=== PATIENT | female | born 1980 | race Caucasian/White ===

== ENCOUNTER → 2021-05-05 12:22 | Outpatient (CLI) | payer OTHER, MEDICAID, SELFPAY ==
[2021-05-05 13:27] LABS: COVID19 -Nasal RAPID Negative (Negative)
== END ==
PROVIDERS: PCP Family Medicine; Referring Provider Student in an Organized Health Care Education/Training Program; Visit Provider Student in an Organized Health Care Education/Training Program
DX: Z20.822 Contact with and (suspected) exposure to COVID-19 (principal); R51.9 Headache, unspecified
CPT/HCPCS: 87635

== ENCOUNTER 2022-02-08 13:26 | Emergency (ER) | payer OTHER, MEDICAID, SELFPAY ==
[2022-02-08 13:32] VITALS: BP 180/101; PULSE 79; RESP 16; TEMP 36.6; O2SAT 99
--- NOTE | 2022-02-08 13:54 | DI.RAD.S_ITS ---
PROCEDURE: XR CHEST 1V INDICATIONS: chest pain TECHNIQUE: One view of the chest was acquired. COMPARISON: None. FINDINGS: Surgical changes and devices: None. Lungs and pleura: Mild patchy opacity medial right lung base. No pleural effusions or pneumothorax. Mediastinum: Mediastinal contours appear normal. Heart size is normal. Bones and chest wall: No suspicious bony lesions. Overlying soft tissues appear unremarkable. IMPRESSION: Mild right basilar opacity is nonspecific, could represent pneumonia or aspiration or atelectasis in the appropriate clinical setting. Dictated by: Aebbe Puga M.D. on 02/08/2022 at 14:56 Approved by: Abebe Puga M.D. on 02/08/2022 at 14:59
[2022-02-08 14:24] LABS: Add Manual Diff / Slide Review NO; Basophils Absolute Auto 0 /uL (0-100); Basophils Percent Auto 0.8 % (0-2); Eosinophils Absolute Auto 300 /uL (0-450); Eosinophils Percent Auto 4.9 % (2-4); Hematocrit 39.1 % (36-46); Hemoglobin 13.2 g/dL (12.0-16.0); Lymphocytes Absolute Auto 1700 /uL (1100-4500); Lymphocytes Percent Auto 31.6 % (25-40); Mean Corpuscular HGB Conc 33.7 % (30-36); Mean Corpuscular Hemoglobin 29.4 PG (26-34); Mean Corpuscular Volume 87.3 fL (80-100); Monocytes Absolute Auto 400 /uL (0-900); Monocytes Percent Auto 7.4 % (3-14); Neutrophils Absolute Auto 3000 /uL (1500-7000); Neutrophils Percent Auto 55.3 % (50-75); Platelet Count 265 X10^3/uL (150-400); Red Blood Cell Count 4.47 X10^6/uL (4.0-5.2); Red Cell Distribution Width 14.4 % (11.6-14.8); White Blood Cell Count 5.4 X10^3/uL (4.5-11.0)
[2022-02-08 14:35] LABS: Alanine Aminotransferase 13 IU/L (<35); Albumin 4.3 g/dL (3.5-5.0); Albumin Globulin Ratio 1.3 (1.0-2.8); Alkaline Phosphatase 49 U/L (38-126); Aspartate Aminotransferase 23 IU/L (14-36); BUN Creatinine Ratio 14.3 (6-22); Bilirubin Total 0.9 mg/dL (0.2-1.3); Blood Urea Nitrogen 9 mg/dL (7-17); Calcium 9.4 mg/dL (8.4-10.2); Carbon Dioxide 27 mmol/L (22-32); Chloride 102 mmol/L (98-107); Creatine Kinase 44 U/L (30-135); Estimated Glomerular Filt Rate > 60 mL/min (>60); Globulin 3.4 g/dL (1.7-4.1); Glucose 88 mg/dL (70-100); HEMOLYSIS < 15 (0-50); Lipase 88 U/L (23-300); Magnesium 1.9 mg/dL (1.6-2.3); Sodium 137 mmol/L (137-145); Total Protein 7.7 g/dL (6.3-8.2)
[2022-02-08 14:46] LABS: Troponin I < 0.012 ng/mL (0.01-0.034)
[2022-02-08 16:13] VITALS: BP 179/96; PULSE 76; RESP 18; O2SAT 98
[2022-02-08] MEDS: AZITHROMYCIN 250 MG TABLET 500 MG PO (17:49)
[2022-02-08] MEDS: AMOXICILLIN 250 MG CAPSULE 1000 MG PO (17:49)
[2022-02-08 17:50] VITALS: BP 160/97; PULSE 72
[2022-02-08] MEDS: lisinopriL 5 MG TABLET PO (17:50)
[2022-02-08 17:54] LABS: Troponin I < 0.012 ng/mL (0.01-0.034)
--- NOTE | 2022-02-08 17:59 | ED.CHESTPAIN ---
HPI - Chest Pain <XAVIER Yang - Last Filed: 02/08/22 19:42> General Chief Complaint: Chest Pain Stated Complaint: high bp chest pain rapid heartbeat Time Seen by Provider: 02/08/22 16:32 Source: patient Mode of arrival: Ambulatory History of Present Illness HPI narrative: This is a 41-year-old female who presents to the emergency department complaining of high blood pressure for the last week, endorses having an upper respiratory infection and comes in today with sensation of chest burning which has been present for most of the day, states it went away for a short time while she was waiting in the waiting room and came back when she came back to a room. She denies any anxiety, is not on any antidepressants, states that she had a cold a week ago and has had high blood pressure with systolic blood pressures over 150 for the last 1-2 weeks. She brought in a record of her blood pressures, she has a follow-up appointment with Dr. De La Garza on March 02. 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 She endorses having a stressful lifestyle but denies any increased stress, fatigue, fever, chills, sensation of shortness of breath or other. She denies having a productive cough or increased congestion. Related Data Previous Rx's Medication Instructions Recorded amoxicillin 500 mg capsule 1,000 mg PO TID pneumonia 7 days 02/08/22 #42 caps azithromycin 250 mg tablet 250 mg PO DAILY 4 days #4 tabs 02/08/22 hydroxyzine HCl 25 mg tablet 25 mg PO BID PRN anxiety/chest 02/08/22 discomfort #14 tabs lisinopril 5 mg tablet 5 mg PO DAILY 30 days #30 tabs 02/08/22 Allergies Allergy/AdvReac Type Severity Reaction Status Date / Time No Known Drug Allergies Allergy Verified 10/23/18 15:53 Review of Systems <XAVIER Yang - Last Filed: 02/08/22 19:42> Review of Systems Narrative: Review of systems is negative for acute abnormalities unless otherwise noted in HPI Patient History <XAVIER Yang - Last Filed: 02/08/22 19:42> Surgical History History of bilateral tubal ligation (04/10/09) Social History Smoking Status: Never smoker Smoking Status: Never smoker Exam <XAVIER Yang - Last Filed: 02/08/22 19:42> Narrative Exam Narrative: Reviewed vitals signs and nursing notes. General: cooperative, comfortable, in no acute distress, well groomed HEENT: symmetrical facial expressions, moist mucous membranes, EOMI, PERRLA Cardiovascular: regular rate and rhythm, no peripheral edema, warm extremities, patient is hypertensive, no murmur auscultated, no additional sounds, S1-S2, blood pressure is between 150 and 170 systolic for most readings. Respiratory: normal effort, able to speak in complete sentences, without wheezing, stridor, or abnormal breath sounds. No retractions or tachypnea. Diminished breath sounds to right middle lobe, without crackles, rhonchi or wheezing, GI: abdomen soft, nontender to palpation, nondistended, without masses, rebound tenderness or exquisite tenderness with exam. MSK: moves all extremities, neurovascularly intact, no weakness, normal tone Skin: brisk capillary refill, without pallor or erythema Neuro: normal speech and cognition, A&O x3, ambulatory, clear speech, no focal neuro deficits on exam Psych: mental status is grossly normal, congruent mood, normal affect, pleasant and cooperative Initial Vital Signs Initial Vital Signs: Vital Signs Temperature 97.8 F 02/08/22 13:32 Pulse Rate 79 02/08/22 13:32 Respiratory Rate 16 02/08/22 13:32 Blood Pressure 180/101 H 02/08/22 13:32 Pulse Oximetry 99 02/08/22 13:32 Oxygen Delivery Method 02/08/22 13:32 <Tiera Ryan DO - Last Filed: 02/10/22 08:55> Initial Vital Signs Initial Vital Signs: Vital Signs Temperature 97.8 F 02/08/22 13:32 Pulse Rate 79 02/08/22 13:32 Respiratory Rate 16 02/08/22 13:32 Blood Pressure 180/101 H 02/08/22 13:32 Pulse Oximetry 99 02/08/22 13:32 Oxygen Delivery Method 02/08/22 13:32 Course <XAVIER Yang - Last Filed: 02/08/22 19:42> Orders Ordered: Discontinued Medications Amoxicillin (Amoxicillin 250 Mg Capsule) 1,000 mg PO NOW ONE Stop: 02/08/22 17:45 Last Admin: 02/08/22 17:49 Dose: 1,000 mg Documented By: HEATHER Azithromycin (Azithromycin 250 Mg Tablet) 500 mg PO NOW ONE Stop: 02/08/22 17:45 Last Admin: 02/08/22 17:49 Dose: 500 mg Documented By: HEATHER Lisinopril (Lisinopril 5 Mg Tablet) 5 mg PO NOW ONE Stop: 02/08/22 17:37 Last Admin: 02/08/22 17:50 Dose: 5 mg Documented By: HEATHER Vital Signs Vital signs: Vital Signs - 8 hr 02/08/22 13:32 02/08/22 16:13 02/08/22 17:50 Temperature 97.8 F Pulse Rate 79 76 72 Respiratory Rate 16 18 Blood Pressure 180/101 H 179/96 H 160/97 H Pulse Oximetry 99 98 Oxygen Delivery Method Room Air Room Air 02/08/22 18:29 Temperature Pulse Rate 100 H Respiratory Rate 24 Blood Pressure 164/99 H Pulse Oximetry 100 Oxygen Delivery Method Room Air <Tiera Ryan DO - Last Filed: 02/10/22 08:55> Orders Ordered: Discontinued Medications Amoxicillin (Amoxicillin 250 Mg Capsule) 1,000 mg PO NOW ONE Stop: 02/08/22 17:45 Last Admin: 02/08/22 17:49 Dose: 1,000 mg Documented By: HEATHER Azithromycin (Azithromycin 250 Mg Tablet) 500 mg PO NOW ONE Stop: 02/08/22 17:45 Last Admin: 02/08/22 17:49 Dose: 500 mg Documented By: HEATHER Lisinopril (Lisinopril 5 Mg Tablet) 5 mg PO NOW ONE Stop: 02/08/22 17:37 Last Admin: 02/08/22 17:50 Dose: 5 mg Documented By: HEATHER Vital Signs Vital signs: Vital Signs - 8 hr 02/08/22 13:32 02/08/22 16:13 02/08/22 17:50 Temperature 97.8 F Pulse Rate 79 76 72 Respiratory Rate 16 18 Blood Pressure 180/101 H 179/96 H 160/97 H Pulse Oximetry 99 98 Oxygen Delivery Method Room Air Room Air 02/08/22 18:29 Temperature Pulse Rate 100 H Respiratory Rate 24 Blood Pressure 164/99 H Pulse Oximetry 100 Oxygen Delivery Method Room Air MDM - Chest Pain <Ivette Zaidi [facility] - Last Filed: 02/08/22 19:42> Lab Data Result diagrams: 02/08/22 13:40 02/08/22 13:54 Labs: Lab Results 02/08/22 02/08/22 02/08/22 Range/Units 13:40 13:54 16:46 WBC 5.4 (4.5-11.0) X10^3/uL RBC 4.47 (4.0-5.2) X10^6/uL Hgb 13.2 (12.0-16.0) g/dL Hct 39.1 (36-46) % MCV 87.3 (80-100) fL MCH 29.4 (26-34) PG MCHC 33.7 (30-36) % RDW 14.4 (11.6-14.8) % Plt Count 265 (150-400) X10^3/uL Neut % (Auto) 55.3 (50-75) % Lymph % (Auto) 31.6 (25-40) % Cooper % (Auto) 7.4 (3-14) % Eos % (Auto) 4.9 H (2-4) % Baso % (Auto) 0.8 (0-2) % Neut # (Auto) 3000 (3686-6502) /uL Lymph # (Auto) 1700 (6741-7164) /uL Cooper # (Auto) 400 (0-900) /uL Eos # (Auto) 300 (0-450) /uL Baso # (Auto) 0 (0-100) /uL Sodium 137 (137-145) mmol/L Potassium 4.0 (3.4-5.1) mmol/L Chloride 102 (98-107) mmol/L Carbon Dioxide 27 (22-32) mmol/L BUN 9 (7-17) mg/dL Creatinine 0.63 (0.52-1.04) mg/dL Estimated GFR > 60 (>60) mL/min BUN/Creatinine Ratio 14.3 (6-22) Glucose 88 (70-100) mg/dL Calcium 9.4 (8.4-10.2) mg/dL Magnesium 1.9 (1.6-2.3) mg/dL Total Bilirubin 0.9 (0.2-1.3) mg/dL AST 23 (14-36) IU/L ALT 13 (<35) IU/L Alkaline Phosphatase 49 (38-126) U/L Total Creatine Kinase 44 (30-135) U/L CK-MB (CK-2) TNP CK-MB (CK-2) Rel Index TNP Troponin I < 0.012 < 0.012 (0.01-0.034) ng/mL Total Protein 7.7 (6.3-8.2) g/dL Albumin 4.3 (3.5-5.0) g/dL Globulin 3.4 (1.7-4.1) g/dL Albumin/Globulin Ratio 1.3 (1.0-2.8) Lipase 88 (23-300) U/L Imaging Data Chest x-ray: Radiologist's Impression: PROCEDURE:? XR CHEST 1V ? INDICATIONS:? chest pain ? TECHNIQUE:? One view of the chest was acquired.? ? COMPARISON:? None. ? FINDINGS:? ? Surgical changes and devices:? None.? ? Lungs and pleura:? Mild patchy opacity medial right lung base.? No pleural effusions or pneumothorax.? ? Mediastinum:? Mediastinal contours appear normal.? Heart size is normal.? ? Bones and chest wall:? No suspicious bony lesions.? Overlying soft tissues appear unremarkable.? ? IMPRESSION:? Mild right basilar opacity is nonspecific, could represent pneumonia or aspiration or atelectasis in the appropriate clinical setting.? ? Dictated by: Abebe Puga M.D. on 02/08/2022 at 14:56 ? ? Approved by: Abebe Puga M.D. on 02/08/2022 at 14:59 ? ECG Data Interpretation: EKG independently reviewed by myself at 1345 reveals normal sinus rhythm at 74 bpm with regular axis and intervals. No STEMI, ST segment changes, arrhythmia, or acute ischemic changes. Repeat EKG independently reviewed by myself at 1700 reveals normal sinus rhythm at 77 bpm with regular axis and intervals. No STEMI, ST segment changes, arrhythmia, or acute ischemic changes. [facility] Narrative Medical decision making narrative: This is a pleasant 41-year-old female without significant medical history who presents to the emergency department complaining of chest burning since last night and this morning, and complains of high blood pressure over the last week with systolic blood pressures in the 150s. Patient presents with a list of the last blood pressure she is been monitoring at home for the last week and a half. Most all of them have a systolic blood pressure of 1 50-170, there was 1 blood pressure of 120 systolic and no hypotension was notable. She denies any associated symptoms with her chest pain and burning sensation, she describes it being midline, denies a productive cough, states that she had an upper respiratory infection last week but that has gotten slightly better. She denies being congested or having a runny nose. Chest x-ray today shows a mild patchy opacity in her right lower lobe base, no pleural effusion or pneumothorax. She has been hypertensive during her visit today with systolic blood pressures up to 180s. On exam, her heart sounds are regular, S1-S2 without additional sounds, no murmur, no rub, her EKGs both of them without any ST changes, arrhythmia, with normal intervals and without any change. She had 2 troponins which were less than 0.012, her COVID PCR is negative, she does not have any leukocytosis, anemia, or any other abnormalities on her lab work today. Patient has diminished breath sounds on the right middle and right lower lung base. Opted to treat patient for her pneumonia which was visible on x-ray with her only symptom of being chest pain. She was treated today with amoxicillin 1 g p.o. t.i.d. for the next 7 days with azithromycin 500 mg given in the emergency department, 250 mg for the next 4 days and was given lisinopril 5 mg in the emergency department and given a 30 day prescription to take this daily for her hypertension. She has scheduled follow-up with her primary care provider on March 02. She understands to return to the emergency department for any new or worsening condition. Multiple causes of chest pain considered including IA, PE, pneumothorax, anxiety, pneumonia, aortic dissection, and pleurisy. Patient reports no radiation, no diaphoresis, no provocation with exertion, and no vomiting. HEART Score for Major Cardiac Events from [email or web address] on 02/08/2022 All calculations should be rechecked by clinician prior to use RESULT SUMMARY: 1 points Low Score (0-3 points) Risk of MACE of 0.9-1.7%. INPUTS: History ?> 0 = Slightly suspicious EKG ?> 0 = Normal Age ?> 0 = <45 Risk factors ?> 1 = 1-2 risk factors Initial troponin ?> 0 = <=ormal limit Patient's heart score is 1. Encouraged her to follow-up with her primary care provider as scheduled. Patient is appropriate and amenable to discharge home. Vital signs are stable on repeat examination is unremarkable. Patient has been informed of results. Patient has been given strict return to ER precautions for any new or worsening symptoms. Patient understands to follow up closely with outpatient providers as instructed. Patient understands plan and agrees to discharge home. All questions and concerns answered at this time. <Tiera Ryan, DO - Last Filed: 02/10/22 08:55> Lab Data Labs: Lab Results 02/08/22 02/08/22 02/08/22 Range/Units 13:40 13:54 16:46 WBC 5.4 (4.5-11.0) X10^3/uL RBC 4.47 (4.0-5.2) X10^6/uL Hgb 13.2 (12.0-16.0) g/dL Hct 39.1 (36-46) % MCV 87.3 (80-100) fL MCH 29.4 (26-34) PG MCHC 33.7 (30-36) % RDW 14.4 (11.6-14.8) % Plt Count 265 (150-400) X10^3/uL Neut % (Auto) 55.3 (50-75) % Lymph % (Auto) 31.6 (25-40) % Cooper % (Auto) 7.4 (3-14) % Eos % (Auto) 4.9 H (2-4) % Baso % (Auto) 0.8 (0-2) % Neut # (Auto) 3000 (9805-4447) /uL Lymph # (Auto) 1700 (7549-4715) /uL Cooper # (Auto) 400 (0-900) /uL Eos # (Auto) 300 (0-450) /uL Baso # (Auto) 0 (0-100) /uL Sodium 137 (137-145) mmol/L Potassium 4.0 (3.4-5.1) mmol/L Chloride 102 (98-107) mmol/L Carbon Dioxide 27 (22-32) mmol/L BUN 9 (7-17) mg/dL Creatinine 0.63 (0.52-1.04) mg/dL Estimated GFR > 60 (>60) mL/min BUN/Creatinine Ratio 14.3 (6-22) Glucose 88 (70-100) mg/dL Calcium 9.4 (8.4-10.2) mg/dL Magnesium 1.9 (1.6-2.3) mg/dL Total Bilirubin 0.9 (0.2-1.3) mg/dL AST 23 (14-36) IU/L ALT 13 (<35) IU/L Alkaline Phosphatase 49 (38-126) U/L Total Creatine Kinase 44 (30-135) U/L CK-MB (CK-2) TNP CK-MB (CK-2) Rel Index TNP Troponin I < 0.012 < 0.012 (0.01-0.034) ng/mL Total Protein 7.7 (6.3-8.2) g/dL Albumin 4.3 (3.5-5.0) g/dL Globulin 3.4 (1.7-4.1) g/dL Albumin/Globulin Ratio 1.3 (1.0-2.8) Lipase 88 (23-300) U/L ECG Data Interpretation: EKG independently reviewed by myself at 1345 reveals normal sinus rhythm at 74 bpm with regular axis and intervals. No STEMI, ST segment changes, arrhythmia, or acute ischemic changes. Repeat EKG independently reviewed by myself at 1700 reveals normal sinus rhythm at 77 bpm with regular axis and intervals. No STEMI, ST segment changes, arrhythmia, or acute ischemic changes. Sinus rhythm, V1V2 q wave. rate of 74, pr of 130, qrs of 76, qtc of 424. rate 74, pr 130, qrs of 76, qtc 424. No acute St changed noted. No priors. [id number] of 77, pr 130, qrs of 84, qtc 448 sinus arrhythmia. No acute ST changes noted. No dynamic changes from prior earlier today. Discharge Plan Departure Patient Disposition: Home Clinical Impression: Atypical chest pain Community acquired pneumonia Qualifiers: Laterality: right Lung location: middle lobe of lung Qualified Code(s): J18.9 - Pneumonia, unspecified organism Hypertension Qualifiers: Hypertension type: unspecified Qualified Code(s): I10 - Essential (primary) hypertension Instructions: High Blood Pressure, DI for Pneumonia -- Adult, DI for Atypical Chest Pain Activity Restrictions/Additional Instructions: *You have been diagnosed with hypertension on greater than a occurrences with systolic blood pressure over 150. Please start lisinopril 5 mg daily for your hypertension and follow-up with Dr. De La Garza on March 02 as scheduled. Please see if your chest pain resolved with these antibiotics, if not, try hydroxyzine during the daytime which can help with congestion, anxiety and nausea as a Bonus. Educated take ibuprofen and/or Tylenol as needed, stay hydrated, please come back for evaluation if you are having any adverse reaction or not getting better or if you have any worsening. I hope you feel better soon and this should help get you in the right direction. *What to do: *Please continue to take your regular medications as directed. [x ] New medication prescriptions sent to your pharmacy: [ [facility]] [ ] New medication written as a paper prescription [ ] No new medications given *Please follow up with your primary care provider in 2-3 days, call for an appointment. Let them know you were seen in the Emergency Department and that we asked that you be seen for follow-up. We will electronically transmit a record of today's note if your PCP is in our system *If you do not have a primary care provider please contact [phone] to establish care with one of the [facility] primary care providers. *Return to Emergency Department if you should have any new, worsening, or concerning symptoms, such as [fever greater than 101F, chills, worsening pain, persistent vomiting or other bothersome symptoms]. Prescriptions: New lisinopril 5 mg tablet 5 mg PO DAILY 30 Days Qty: 30 0RF azithromycin 250 mg tablet 250 mg PO DAILY 4 Days Qty: 4 0RF Rx Instructions: start on day 2 of therapy amoxicillin 500 mg capsule 1,000 mg PO TID 7 Days Qty: 42 0RF hydroxyzine HCl 25 mg tablet 25 mg PO BID PRN (Reason: anxiety/chest discomfort) Qty: 14 0RF Referrals: Deysi De La Garza MD [Primary Care Provider] - Visit Report Forms: Patient Portal/API
[2022-02-08 18:29] VITALS: BP 164/99; PULSE 100; RESP 24; O2SAT 100
== END 2022-02-08 18:31 | disposition home or self-care (01) ==
PROVIDERS: Emergency Medicine; Emergency Provider Nurse Practitioner Critical Care Medicine; PCP Family Medicine
DX: J18.9 Pneumonia, unspecified organism (principal); I10 Essential (primary) hypertension; R07.89 Other chest pain
CPT/HCPCS: 71045; 80053; 82550; 83690; 83735; 84484; 85025; 93005; 93010; 99284

== ENCOUNTER → 2022-03-01 11:45 | Outpatient (CLI) | payer OTHER, MEDICAID, SELFPAY ==
[2022-03-01 13:54] LABS: Alanine Aminotransferase 13 IU/L (<35); Albumin 4.1 g/dL (3.5-5.0); Albumin Globulin Ratio 1.4 (1.0-2.8); Alkaline Phosphatase 45 U/L (38-126); Aspartate Aminotransferase 20 IU/L (14-36); BUN Creatinine Ratio 15.5 (6-22); Blood Urea Nitrogen 11 mg/dL (7-17); Calcium 8.8 mg/dL (8.4-10.2); Carbon Dioxide 25 mmol/L (22-32); Chloride 104 mmol/L (98-107); Cholesterol 209 mg/dL (140-199); Estimated Glomerular Filt Rate > 60 mL/min (>60); Glucose 87 mg/dL (70-100); HDL Cholesterol 76 mg/dL (40-60); HEMOLYSIS < 15 (0-50); LDL Cholesterol Calculated 124 mg/dL (<100); Potassium 4.1 mmol/L (3.4-5.1); Sodium 138 mmol/L (137-145); Total Protein 7.1 g/dL (6.3-8.2); Triglycerides 47 mg/dL (35-150)
[2022-03-01 14:24] LABS: TSH w/ Reflex to FT4 0.89 uIU/mL (0.47-4.68)
[2022-03-01 16:02] LABS: Microalbumin Urine Random 0.8 mg/dL (0-1.6)
[2022-03-01 16:05] LABS: Creatinine Urine Random 101.9 mg/dL; Microalbumi Creatinin Ratio Ur 7.8 ug/mg CR (<30)
== END ==
PROVIDERS: PCP Family Medicine; Referring Provider Family Medicine; Visit Provider Family Medicine
DX: I10 Essential (primary) hypertension (principal)
CPT/HCPCS: 36415; 80053; 80061; 82043; 82570; 84443

== ENCOUNTER 2022-06-17 19:33 | Emergency (ER) | payer OTHER, MEDICAID, SELFPAY ==
[2022-06-17 19:40] VITALS: BP 152/102; PULSE 117; RESP 20; TEMP 37.1; O2SAT 100; BMI 28.9
--- NOTE | 2022-06-17 19:49 | DI.RAD.S_ITS ---
PROCEDURE: XR CHEST 1V INDICATIONS: Shortness of breath TECHNIQUE: One view of the chest was acquired. COMPARISON: [facility], CR, XR CHEST 1V, 02/08/2022, 14:03. FINDINGS: Surgical changes and devices: None. Lungs and pleura: Lungs are clear. No pleural effusions or pneumothorax. Mediastinum: Mediastinal contours appear normal. Heart size is normal. Bones and chest wall: No suspicious bony lesions. Overlying soft tissues appear unremarkable. IMPRESSION: 1. No acute cardiopulmonary disease. Dictated by: Mina Hernández M.D. on 06/17/2022 at 20:27 Approved by: Mina Hernández M.D. on 06/17/2022 at 20:27
[2022-06-17 20:32] LABS: Influenza A - CEPHEID Flu A NEGATIVE (NEGATIVE); Influenza B - CEPHEID Flu B NEGATIVE (NEGATIVE); Respiratory Syncytial Virus Negative (Negative)
[2022-06-17 20:34] LABS: Add Manual Diff / Slide Review NO; Basophils Absolute Auto 100 /uL (0-100); Basophils Percent Auto 0.5 % (0-2); Eosinophils Absolute Auto 100 /uL (0-450); Eosinophils Percent Auto 0.6 % (2-4); Hematocrit 35.1 % (36-46); Hemoglobin 11.8 g/dL (12.0-16.0); Lymphocytes Absolute Auto 800 /uL (1100-4500); Lymphocytes Percent Auto 8.1 % (25-40); Mean Corpuscular HGB Conc 33.6 % (30-36); Mean Corpuscular Hemoglobin 28.8 PG (26-34); Mean Corpuscular Volume 85.6 fL (80-100); Monocytes Absolute Auto 700 /uL (0-900); Monocytes Percent Auto 7.2 % (3-14); Neutrophils Absolute Auto 8500 /uL (1500-7000); Neutrophils Percent Auto 83.6 % (50-75); Platelet Count 241 X10^3/uL (150-400); Red Cell Distribution Width 15.4 % (11.6-14.8); White Blood Cell Count 10.2 X10^3/uL (4.5-11.0)
[2022-06-17 20:38] LABS: COVID-19 CEPHEID 4-PLEX PCR Negative (Negative)
[2022-06-17 20:56] LABS: Alanine Aminotransferase 17 IU/L (<35); Albumin 4.2 g/dL (3.5-5.0); Albumin Globulin Ratio 1.4 (1.0-2.8); Alkaline Phosphatase 51 U/L (38-126); Aspartate Aminotransferase 23 IU/L (14-36); BUN Creatinine Ratio 14.7 (6-22); Bilirubin Total 0.8 mg/dL (0.2-1.3); Blood Urea Nitrogen 10 mg/dL (7-17); Calcium 8.8 mg/dL (8.4-10.2); Carbon Dioxide 27 mmol/L (22-32); Chloride 101 mmol/L (98-107); Estimated Glomerular Filt Rate > 60 mL/min (>60); Globulin 3.1 g/dL (1.7-4.1); Glucose 84 mg/dL (70-100); HEMOLYSIS < 15 (0-50); Lactate (Lactic Acid) 1.3 mmol/L (0.7-2.1); Potassium 3.8 mmol/L (3.4-5.1); Sodium 137 mmol/L (137-145); Total Protein 7.3 g/dL (6.3-8.2)
[2022-06-17 21:06] LABS: NT-proBNP (BNP-Adult 18+) 104 pg/mL (<125); Troponin I < 0.012 ng/mL (0.01-0.034)
--- NOTE | 2022-06-17 21:42 | ED_ITS ---
HPI - General Adult General Chief complaint: Shortness of Breath/Dyspnea Stated complaint: chest pressure, cough Time Seen by Provider: 06/17/22 20:00 Source: patient Mode of arrival: Ambulatory Limitations: no limitations History of Present Illness HPI narrative: Patient is a 41-year-old female who at the end of last year was seen here in the emergency department and diagnosed with pneumonia. She was placed on antibiotics. States her symptoms resolved and now for the past several weeks she is had return of the same symptoms. She is had subjective fevers. Productive cough. Shortness of breath. Tightness in her chest with coughing. No nausea or vomiting. Has not been evaluated for this particular episode. Has tried Mucinex at home without any improvement. No nausea vomiting. No recent travel. Related Data Previous Rx's Medication Instructions Recorded hydroxyzine HCl 25 mg tablet 25 mg PO BID PRN anxiety/chest 02/08/22 discomfort #14 tabs lisinopril 10 mg tablet 10 mg PO DAILY #90 tabs 03/08/22 azithromycin 250 mg tablet See Rx Instructions PO .COMPLEX #6 06/17/22 tabs Allergies Allergy/AdvReac Type Severity Reaction Status Date / Time No Known Drug Allergies Allergy Verified 06/17/22 19:46 Review of Systems Constitutional Constitutional: Reports system reviewed and no additional complaints, except as documented Cardiovascular Cardiovascular: Reports system reviewed and no additional complaints, except as documented Respiratory Respiratory: Reports system reviewed and no additional complaints, except as documented Gastrointestinal Gastrointestinal: Reports system reviewed and no additional complaints, except as documented Integumentary/Breasts Skin/Breast: Reports system reviewed and no additional complaints, except as documented Neurologic Neurologic: Reports system reviewed and no additional complaints, except as documented Patient History Surgical History History of bilateral tubal ligation (04/10/09) Social History Smoking Status: Never smoker Smoking Status: Never smoker alcohol intake frequency: 0-2 drinks per day Substance Use Type: does not use Exam Initial Vital Signs Initial Vital Signs: Vital Signs Temperature 98.7 F 06/17/22 19:40 Pulse Rate 117 H 06/17/22 19:40 Respiratory Rate 20 06/17/22 19:40 Blood Pressure 152/102 H 06/17/22 19:40 Pulse Oximetry 100 06/17/22 19:40 Oxygen Delivery Method 06/17/22 19:40 [facility] Head: normal to inspection and normocephalic Resp Effort & Inspection: normal respiratory effort and not tachypneic Auscultation: rhonchi left upper and left lower Cardio Rate: tachycardic Rhythm: regular rhythm Skin General: no rashes or lesions noted Neuro General: patient alert, patient awake and moves all extremities Extrem General: normal to inspection and capillary refill normal Course Orders Ordered: ED Orders 06/17/22 19:49 XR chest 1V Stat EKG-12 Lead Stat Measure peak expiratory flow ONCE RT Consult Eval and Treat NOW 06/17/22 19:50 Covid-19 + FLU A/B + RSV - PCR Stat 06/17/22 20:19 Complete Blood Count AUTO DIFF Stat Comprehensive Metabolic Panel Stat Lactate (Lactic Acid) Stat NT-proBNP (BNP-Adult 18+) Stat Prothrombin Time INR Stat Troponin I Stat Vital Signs Vital signs: Vital Signs - 8 hr 06/17/22 19:40 Temperature 98.7 F Pulse Rate 117 H Respiratory Rate 20 Blood Pressure 152/102 H Pulse Oximetry 100 Oxygen Delivery Method Room Air Medical Decision Making Medical Records Medical records reviewed: Yes I reviewed the patient's medical records. Lab Data Lab results reviewed: Yes I reviewed the patient's lab results. 06/17/22 20:19 06/17/22 20:19 Labs: Lab Results 06/17/22 06/17/22 06/17/22 Range/Units 19:50 20:19 20:19 WBC 10.2 (4.5-11.0) X10^3/uL RBC 4.10 (4.0-5.2) X10^6/uL Hgb 11.8 L (12.0-16.0) g/dL Hct 35.1 L (36-46) % MCV 85.6 (80-100) fL MCH 28.8 (26-34) PG MCHC 33.6 (30-36) % RDW 15.4 H (11.6-14.8) % Plt Count 241 (150-400) X10^3/uL Neut % (Auto) 83.6 H (50-75) % Lymph % (Auto) 8.1 L (25-40) % Petroleum % (Auto) 7.2 (3-14) % Eos % (Auto) 0.6 L (2-4) % Baso % (Auto) 0.5 (0-2) % Neut # (Auto) 8500 H (7005-5380) /uL Lymph # (Auto) 800 L (6072-1847) /uL Petroleum # (Auto) 700 (0-900) /uL Eos # (Auto) 100 (0-450) /uL Baso # (Auto) 100 (0-100) /uL PT 11.0 (10.1-12.7) SECONDS INR 1.0 (0.9-1.3) Sodium (137-145) mmol/L Potassium (3.4-5.1) mmol/L Chloride (98-107) mmol/L Carbon Dioxide (22-32) mmol/L BUN (7-17) mg/dL Creatinine (0.52-1.04) mg/dL Estimated GFR (>60) mL/min BUN/Creatinine Ratio (6-22) Glucose (70-100) mg/dL Lactate (0.7-2.1) mmol/L Calcium (8.4-10.2) mg/dL Total Bilirubin (0.2-1.3) mg/dL AST (14-36) IU/L ALT (<35) IU/L Alkaline Phosphatase (38-126) U/L Troponin I (0.01-0.034) ng/mL NT-Pro-B Natriuret Pep (<125) pg/mL Total Protein (6.3-8.2) g/dL Albumin (3.5-5.0) g/dL Globulin (1.7-4.1) g/dL Albumin/Globulin Ratio (1.0-2.8) SARS-CoV-2 (PCR) Negative (Negative) Influenza A (RT-PCR) Flu a negative (NEGATIVE) Influenza B (RT-PCR) Flu b negative (NEGATIVE) RSV (PCR) Negative (Negative) 06/17/22 06/17/22 Range/Units 20:19 20:19 WBC (4.5-11.0) X10^3/uL RBC (4.0-5.2) X10^6/uL Hgb (12.0-16.0) g/dL Hct (36-46) % MCV (80-100) fL MCH (26-34) PG MCHC (30-36) % RDW (11.6-14.8) % Plt Count (150-400) X10^3/uL Neut % (Auto) (50-75) % Lymph % (Auto) (25-40) % Petroleum % (Auto) (3-14) % Eos % (Auto) (2-4) % Baso % (Auto) (0-2) % Neut # (Auto) (3544-8841) /uL Lymph # (Auto) (3467-4846) /uL Petroleum # (Auto) (0-900) /uL Eos # (Auto) (0-450) /uL Baso # (Auto) (0-100) /uL PT (10.1-12.7) SECONDS INR (0.9-1.3) Sodium 137 (137-145) mmol/L Potassium 3.8 (3.4-5.1) mmol/L Chloride 101 (98-107) mmol/L Carbon Dioxide 27 (22-32) mmol/L BUN 10 (7-17) mg/dL Creatinine 0.68 (0.52-1.04) mg/dL Estimated GFR > 60 (>60) mL/min BUN/Creatinine Ratio 14.7 (6-22) Glucose 84 (70-100) mg/dL Lactate 1.3 (0.7-2.1) mmol/L Calcium 8.8 (8.4-10.2) mg/dL Total Bilirubin 0.8 (0.2-1.3) mg/dL AST 23 (14-36) IU/L ALT 17 (<35) IU/L Alkaline Phosphatase 51 (38-126) U/L Troponin I < 0.012 (0.01-0.034) ng/mL NT-Pro-B Natriuret Pep 104 (<125) pg/mL Total Protein 7.3 (6.3-8.2) g/dL Albumin 4.2 (3.5-5.0) g/dL Globulin 3.1 (1.7-4.1) g/dL Albumin/Globulin Ratio 1.4 (1.0-2.8) SARS-CoV-2 (PCR) (Negative) Influenza A (RT-PCR) (NEGATIVE) Influenza B (RT-PCR) (NEGATIVE) RSV (PCR) (Negative) Imaging Data Chest x-ray: Radiologist's Impression: PROCEDURE:? XR CHEST 1V ? INDICATIONS:? Shortness of breath ? TECHNIQUE:? One view of the chest was acquired.? ? COMPARISON:? [facility], CR, XR CHEST 1V, 02/08/2022, 14:03. ? FINDINGS:? ? Surgical changes and devices:? None.? ? Lungs and pleura:? Lungs are clear.? No pleural effusions or pneumothorax.? ? Mediastinum:? Mediastinal contours appear normal.? Heart size is normal.? ? Bones and chest wall:? No suspicious bony lesions.? Overlying soft tissues appear unremarkable.? ? IMPRESSION:? ? 1.? No acute cardiopulmonary disease. ECG Data Attestation: I personally reviewed and interpreted this ECG as follows: Interpretation: Sinus tachycardia Ventricular rate of 111 Normal axis Normal QRS Normal QTC No ST T wave changes MDM Narrative Medical decision making narrative: Clinically patient does have a pneumonia with a productive cough and coarse breath sounds on the left and also subjective fevers. The chest x-ray does not show any consolidations. Her flu COVID and RSV tests are negative. Patient is not hypoxic. No respiratory distress. Plan to be is to treat her with antibiotics given her clinical diagnosis of pneumonia. No indication for adm ission to the hospital. Patient was given return precautions. She expressed understanding and agreement. Discharge Plan Departure Patient Disposition: Home Clinical Impression: Pneumonia Instructions: DI for Pneumonia -- Adult Activity Restrictions/Additional Instructions: I do recommend that you consider taking an antihistamine such as Claritin or Azra or Zyrtec. You can purchase these [id number] and the generic versions of these medications as appropriate. We will start you on antibiotics. Please start taking it as directed. Contact your primary doctor for a follow- up. Prescriptions: New azithromycin 250 mg tablet See Rx Instructions .ROUTE .COMPLEX Qty: 6 0RF Rx Instructions: For 250 mg dose pack: take 500 mg today (day 1), then 250 mg for 4 days (days 2-5) No Action lisinopril 10 mg tablet 10 mg PO DAILY Qty: 90 1RF hydroxyzine HCl 25 mg tablet 25 mg PO BID PRN (Reason: anxiety/chest discomfort) Qty: 14 0RF Referrals: Deysi De La Garza MD [Primary Care Provider] - Stand Alone Forms: Patient Portal/API
== END 2022-06-17 22:03 | disposition home or self-care (01) ==
PROVIDERS: Emergency Provider Emergency Medicine; PCP Family Medicine
DX: J18.9 Pneumonia, unspecified organism (principal); Z20.822 Contact with and (suspected) exposure to COVID-19
CPT/HCPCS: 0241U; 36415; 71045; 80053; 83605; 83880; 84484; 85025; 85610; 93005; 99283; 99284

== ENCOUNTER → 2022-06-24 16:15 | Outpatient (CLI) | payer OTHER, MEDICAID, SELFPAY ==
--- NOTE | 2022-06-24 16:16 | DI.MG.S_ITS ---
BILATERAL DIGITAL SCREENING MAMMOGRAM 3D/2D WITH CAD: 06/24/2022 CLINICAL: Routine screening. Comparison is made to exam dated: 02/17/2017 mammogram - [facility]. Both breasts are heterogeneously dense, which may obscure small masses (category c / 51-75% glandular tissue). Current study was also evaluated with a Computer Aided Detection (CAD) system. No significant masses, calcifications, or other findings are seen in either breast. There has been no significant interval change. IMPRESSION: NEGATIVE There is no mammographic evidence of malignancy. A 1 year screening mammogram is recommended. Based on the Tyrer Cuzick model (a risk assessment model) the patient's lifetime risk is 10.7% and her 10 year risk is 1.6%. According to the ACR, ACS, and NCCN guidelines, an annual breast MRI exam along with mammogram is recommended if the patient's lifetime risk is 20% or greater. This exam was interpreted at Station ID: [id number]. NOTE: For mammograms, a report in lay terms will be sent to the patient. Approximately 15% of breast malignancies will not be visualized mammographically. In the management of a palpable breast mass, a negative mammogram must not discourage biopsy of a clinically suspicious lesion. Electronically Signed By: Myron [email or web address]/[email or web address]:06/25/2022 08:51:53 letter sent: Normal Exam ACR BI-RADS Category 1: Negative [id number]
--- NOTE | 2022-06-24 16:16 | DI.US.S_ITS ---
PROCEDURE: US PELVIC COMPLETE INDICATIONS: increasing frequency of menses TECHNIQUE: Real-time scanning was performed of the pelvic organs, with image documentation. Additional endovaginal scanning was necessary due to incomplete visualization of the adnexal and endometrial structures by transabdominal scanning. COMPARISON: None. FINDINGS: Uterus: Uterus is anteverted and normal in size at 11 x 6.9 x 5.7 cm. The myometrium is heterogeneous. Tiny myometrial cysts. The endometrium measures 14 mm combined thickness. No fibroids seen. Ovaries: The right ovary measures 2.7 x 1.4 x 1.1 cm, with a calculated ovarian volume of 2 cc. The left ovary measures 3.7 x 3 x 2.6 cm, with a calculated ovarian volume of 15 cc. The ovaries have a normal sonographic appearance. Less than 12 follicles can be seen in each ovary. Left corpus luteum measuring 2.3 cm. Left paraovarian anechoic cyst measuring 2.5 cm. Other: No pathologic free abdominal or pelvic fluid. IMPRESSION: 1. Findings concerning for uterine adenomyosis. -Pelvic MRI could be considered for confirmation. 2. Suspect left corpus luteum or hemorrhagic cyst measuring 2.3 cm. 3. Left paraovarian anechoic cyst measuring 2.5 cm. We strive to produce accurate, complete, and clear reports of imaging services. To assist us in improving patient care, this report was composed using standard report templates and voice recognition software. Therefore, it may contain abnormal punctuation, insertions and/or omissions. Occasional wrong-word or sound-alike substitutions may occur. Though we review the report and make efforts to correct it, we do recommend that the report be read carefully in proper context to recognize any text inaccuracies. Dictated by: Myron Howell M.D. on 06/24/2022 at 17:08 Approved by: Myron Howell M.D. on 06/24/2022 at 17:12
== END ==
PROVIDERS: PCP Family Medicine; Referring Provider Family Medicine; Visit Provider Family Medicine
DX: Z12.31 Encounter for screening mammogram for malignant neoplasm of breast (principal); N92.0 Excessive and frequent menstruation with regular cycle; N83.292 Other ovarian cyst, left side
CPT/HCPCS: 76830; 76856; 77063; 77067